=== PATIENT | male | born 1960 | race Caucasian/White ===

== ENCOUNTER 2017-04-27 16:20 | Emergency (ER) | payer BC ==
[~2017-04-27] VITALS: Ht 185.4 cm; Wt 84.6 kg
[2017-04-27 16:39] VITALS: BP 150/94; PULSE 78; TEMP 98.6; O2SAT 100
[2017-04-27] MEDS ORDERED: KETOROLAC TROMETHAMINE 60 MG/2 ML (IM) VIAL IM ONE (17:00)
[2017-04-27] MEDS ORDERED: ORPHENADRINE INJ 60 MG/2 ML AMP IM ONE (17:00)
--- NOTE | 2017-04-27 17:08 | PD ---
HPI Chief Complaint: Musculoskeletal Complaint Time Seen by Provider: 16:50 Travel History International Travel<30 days: Yes Contact w/Intl Traveler<30days: Yes Name of Country Traveled to: [place] Traveled to known affect area: No History of Present Illness HPI 57-year-old male presents to the emergency room for evaluation of left buttocks pain radiating down the left lower extremity for the past 3 weeks. Patient denies any trauma or injury. Patient states he woke up with pain and feels as though it is getting worse. Pain is localized to the left buttocks and left calf. He reports pain throughout the thigh but it is not as severe. He reports tingling localized to the left knee. States he has been taking Aleve which moderately relieves his symptoms. No association of pain with walking. Denies weight loss, fever, chills, IV drug use, saddle anesthesia, or loss of bowel or bladder control. Denies chronic medical conditions or daily medications. Denies history of alcohol abuse or chronic steroid use. Denies shortness of breath, chest pain. Patient reports laminectomy of L4-L5 in 1983. [facility] Past Medical History Medical History: Denies Significant Hx Diminished Hearing: Yes (bilateral) Tetanus Vaccination: Unknown Past Surgical History Other Surgery: Yes (Discectomy and laminectomy ) Social History Alcohol Use: No Tobacco Use: No Substance Use: No Allergies-Medications (Allergen,Severity, Reaction): Coded Allergies: No Known Allergies (Unverified , 04/27/17) Reported Meds & Prescriptions Reported Meds & Active Scripts Active Ibuprofen 600 Mg Tab 600 Mg PO Q8HR PRN Robaxin (Methocarbamol) 750 Mg Tab 750 Mg PO Q8HR Review of Systems Except as stated in HPI: all other systems reviewed are Neg Physical Exam Narrative GENERAL: Well-developed, well-nourished male in no acute distress. Afebrile. Ambulatory. SKIN: Warm and dry. No erythema or ecchymosis. HEAD: Atraumatic. Normocephalic. No mckeon sign or raccoon eyes. EYES: PERRL, EOMI, no discharge or injection. No scleral icterus. NECK: Trachea midline. No JVD. No midline tenderness. Full range of motion. CARDIOVASCULAR: Regular rate and rhythm. No murmur appreciated. RESPIRATORY: No accessory muscle use. Clear to auscultation. Breath sounds equal bilaterally. No crackles, rales, wheezes, or rhonchi. BACK: No CVA tenderness. No rash. Very mild tenderness to palpation of the lumbar spine. 2+ Achilles and patellar reflexes are equal bilaterally. NEUROLOGICAL: Awake and alert. Cranial nerves 2 through 12 intact. Motor grossly within normal limits. Normal speech. Strength 5/5 and equal in upper and lower extremities. PSYCHIATRIC: Appropriate mood and affect; insight and judgment normal. Data Data Last Documented VS Vital Signs Date Time Temp Pulse Resp B/P Pulse Ox O2 Delivery O2 Flow Rate FiO2 04/27/17 16:39 98.6 78 150/94 100 Orders Spine, Lumbar - Ltd (Ap & Lat) (04/27/17 ) Pelvis, Ap Only (Routine) (04/27/17 ) Ketorolac Inj (Toradol Inj) (04/27/17 17:00) Orphenadrine Inj (Norflex Inj) (04/27/17 17:00) MDM Medical Decision Making Medical Screen Exam Complete: Yes Emergency Medical Condition: Yes Medical Record Reviewed: Yes Differential Diagnosis Sciatica, muscle spasm, strain, fracture, dislocation Narrative Course 57-year-old male presents to the emergency room for evaluation of left buttocks pain radiating down the left lower extremity for the past 3 weeks. Patient reports associated tingling especially around the knee. Symptoms have been getting progressively worse. Patient denies weight loss, fevers, IV drug use. No focal neurologic deficits. No trauma or injury. Very mild midline tenderness of the lumbar spine. Left lower extremity is neurovascularly intact with 2+ dorsalis pedis pulse. Strength 5/5 and equal in lower extremities. No foot drop noted. X-ray of the pelvis is negative. X-ray of the low back shows moderate compression deformity of L2 compression deformity of L4-5. Patient was given Toradol and Norflex in the emergency room. Patient was told to follow -up with his primary care physician for outpatient MRI to assess the acuity of the compression deformities and evaluate for underlying bony disorder or cancer considering extent of degenerative disc disease and deformity without trauma at patient's age. Discharged with prescriptions for ibuprofen and Robaxin. He understands and agrees to plan. Diagnosis Primary Impression: Low back pain Qualified Code: M54.42 - Acute left-sided low back pain with left-sided sciatica Referrals: Primary Care Physician Patient Instructions: General Instructions, Sciatica (ED) Additional Instructions: Rest and drink plenty of fluids. Take Robaxin as directed, as needed for pain. Take ibuprofen with food as directed, as needed for pain. Apply ice to the affected area for 20 minutes at a time, as needed for pain and swelling. Follow-up with a primary care physician. Return to the emergency room for worsening symptoms. Med/Other Pt SpecificInfo: Prescription(s) given Scripts Ibuprofen 600 Mg [id number] Mg PO Q8HR PRN (PAIN) #21 TAB Ref 0 Prov:Roc Leon MD 04/27/17 Methocarbamol (Robaxin)750 Mg [id number] Mg PO Q8HR #15 TAB Ref 0 Prov:Roc Leon MD 04/27/17 Disposition: 01 DISCHARGE HOME Condition: Stable Ann Herron Apr 27, 2017 17:08
--- NOTE | 2017-04-27 17:42 | RADRPT ---
EXAM DATE/TIME: 04/27/2017 17:12 [facility] COMPARISON: No previous studies available for comparison. INDICATIONS : Left buttock pain. MEDICAL HISTORY : None. SURGICAL HISTORY : None. ENCOUNTER: Initial ACUITY: 1 day PAIN SCORE: 4/10 LOCATION: Left buttock FINDINGS: A single frontal view of the pelvis demonstrates no evidence of fracture. The bony pelvic ring is in tact. Bony mineralization is normal. The soft tissues are intact. CONCLUSION: No acute disease. Patrick Maurice Jr., MD on April 27, 2017 at 17:40 Board Certified Radiologist. This report was verified electronically.
--- NOTE | 2017-04-27 17:55 | RADRPT ---
EXAM DATE/TIME: 04/27/2017 17:13 [facility] COMPARISON: No previous studies available for comparison. INDICATIONS : Left lower back pain. MEDICAL HISTORY : None. SURGICAL HISTORY : Discectomy. Laminectomy. ENCOUNTER: Initial ACUITY: 1 day PAIN SCORE: 4/10 LOCATION: Left lumbar. FINDINGS: There is moderate compression deformity involving L2 indeterminate age. Mild compression deformity i s noted involving L4 and L5 and are also indeterminate in age. Degenerative disc disease is noted al l levels within the lumbar spine as well as within multiple lower thoracic levels. CONCLUSION: 1. Moderate compression deformity involving L2 and mild compression deformities involving L4 and L5 o f indeterminate ages. Clinical correlation is recommended. 2. Degenerative changes throughout the lumbar and lower thoracic spine. Lawrence Kim MD on April 27, 2017 at 17:49 Board Certified Radiologist. This report was verified electronically.
[2017-04-27] MEDS ORDERED: IBUP-232 PO (18:12)
[2017-04-27] MEDS ORDERED: ROBA750T PO (18:12)
== END 2017-04-27 18:26 | disposition home or self-care (01) ==
LOC: PHEFT 16:20
DX: M54.42 Lumbago with sciatica, left side (principal)
CPT/HCPCS: 72100; 72170; 96372; 99284; J1885; J2360